=== PATIENT | female | born 1970 | race Caucasian/White ===

== ENCOUNTER 2019-01-20 05:21 | Day surgery (SDC) | payer BC ==
[~2019-01-20] VITALS: Ht 152.4 cm; Wt 61.2 kg
--- NOTE | ~2019-01-20 | O ---
[facility] [place] [address] OPERATIVE REPORT Name: ANGIE ALCANTARA Room #: DEP [facility]..#: [id number] Admission: 01/20/19 ������������������ Attend Phys: Ryan Madrigal MD Discharge: 01/20/19 ������������������ Date of : 72 Report #: [id number] THIS REPORT FOR: //name// CC: MANISH physician/PCP Ryan Madrigal DATE OF SERVICE: 01/20/2019 PREOPERATIVE DIAGNOSES: Chronic pelvic pain, severe dysmenorrhea and dyspareunia. POSTOPERATIVE DIAGNOSES: Possible endometriosis, chronic pelvic pain, severe dysmenorrhea and dyspareunia. SURGEON: Ryan Madrigal M.D. BEAM SAW OPERATOR: None. ANESTHESIA: General. ESTIMATED BLOOD LOSS: 5 mL. PROCEDURE: Laparoscopic excision of pelvic cul-de-sac endometriosis; laparoscopic ablation of endometriosis of the uterine serosa. COMPLICATIONS: None. SPECIMEN: 1. Mucoid peritoneal cysts x 2. 2. Posterior cul-de-sac peritoneal window. FINDINGS: Exam under anesthesia revealed an anteflexed uterus of normal size with no adnexal masses. Uterus sounded to 7 cm depth and was anteflexed and was slightly stenotic at the level of the internal os necessitating the use of a cervical dilator in addition to a uterine sound. LAPAROSCOPIC FINDINGS: The uterine serosa appeared somewhat inflamed, particularly at the bilateral uterine cornua, where it exhibited a wider space with hypervascularity, consistent with possible atypical endometriosis. There was a peritoneal window of the posterior cul-de-sac at the 11 o'clock position, which was excised. The left posterior broad ligament appeared mildly inflamed. There were no typical endometriosis lesions found in the pelvis, otherwise. Both fallopian tubes were surgically absent as was the left ovary. The right ovary appeared nodular, but otherwise normal in appearance. Found floating freely in the posterior cul-de-sac were two separate distinct conglomerates of mucoid-filled cysts, measuring approximately 5-8 mm in diameter. [facility] [address] [place] [address] OPERATIVE REPORT Name: ANGIE ALCANTARA Room #: DEP [facility].#: [id number] Admission: 01/20/19 ������������������ Attend Phys: Ryan Madrigal MD Discharge: 01/20/19 ������������������ Date of : 72 Report #: [id number] DESCRIPTION OF PROCEDURE: The patient was seen in the preoperative holding area, where consent was obtained for surgery and followup in the office was discussed. She was then taken to the operating room, administered general anesthesia and prepped and draped in a sterile fashion in the dorsal lithotomy position, modified. Pelvic exam under anesthesia was carried out. Speculum was placed in the vagina. Cervix was grasped using a single tooth tenaculum. A uterine sound was unable to get past the level of the internal os. A small Hanks dilator of the cervix was then used to delineate the path of the endometrial canal after bypassing the internal os stenosis. Sounding was to a depth of 7 cm. A Hulka sound tenaculum was then inserted inside the uterus for manipulation and the single tooth tenaculum removed. The speculum was removed and a Paris catheter was inserted into the bladder. Attention was then turned to the abdomen, where an infraumbilical skin incision was made using a scalpel in a vertical direction in the inferior portion of the umbilicus, after first infiltrating the subcutaneous and subcuticular layers with 0.5% Marcaine. With upward traction on the abdomen, a laparoscopic Optiview trocar was inserted under Optiview vision without difficulty. The trocar was removed. The CO2 gas insufflated to a pressure of 15 mmHg. The laparoscope was inserted and there was no evidence of any bowel injury. There was seemed to be some omentum adherent to the area of the umbilicus, just superior to the level of insertion. Trendelenburg position was then established. The inferior epigastric blood vessels could not be visualized laparoscopically. A 5-mm laparoscopic trocar and sleeve were inserted under direct laparoscopic vision, one in each lower quadrants, while staying 2 fingerbreadths above and medial to the anterior iliac spines and staying in the lateral one-third of the abdomen respectively. The mucoid peritoneal cysts were removed laparoscopically and sent for pathology. Monopolar cautery was then used to ablate the atypical endometriosis like lesions at the bilateral cornu of the uterus. The peritoneal window was found in the posterior cul-de-sac at the 11 o'clock position and was excised using a scalpel and monopolar cautery for hemostasis. This window was sent for pathology. The 5-mm trocars were removed from the lower quadrants and found to be hemostatic under laparoscopic vision. CO2 gas was then expressed through the umbilical trocar sleeve, which was then removed. The skin incisions were closed using simple sutures of 4-0 Vicryl. The Hulka sound tenaculum was removed and pressure used with sponge on a stick on the cervix for hemostasis, which was observed. All instrument, needle and pad counts were correct. The patient was brought out of general anesthesia and taken to the recovery room with IV infusing well. She will be discharged home with instructions to take ibuprofen 800 mg every 8 hours for pain and to augment that with [place] 5/325 one tablet every 4 hours as needed for pain, dispensed 20 with no refills. She was to follow up as an outpatient in the office in 8 days. She was to contact Dr. Madrigal should she have any problems, including pain, redness or pus around the incisions; [facility] [address] [place] [address] OPERATIVE REPORT Name: SUDEEP ALCANTARADelicia CORDERO Room #: DEP [facility] M.R.#: [id number] Admission: 01/20/19 ������������������ Attend Phys: Ryan Madrigal MD Discharge: 01/20/19 ������������������ Date of : 72 Report #: [id number] abdominal bloating; nausea; vomiting; fever or any other issues that might seem suspicious or out of the ordinary. ��������������������������������������������� ���������������������������������������� By: ��������������������������������������������� [id number] [id number] Ryan Madrigal MD /nt
[~2019-01-20 05:21] MED LIST: CELEXA10 MG PO; IBUPROFEN 200200 M1 PO; LORATIDINE 10 M10 M1 PO; PROBIOTIC1 EAC1 PO; TYLENOL325 MG PO
[2019-01-20 08:00] VITALS: BP 116/62
[2019-01-20] MEDS ORDERED: IBUPROFEN 200200 M1 PO (12:35)
[2019-01-20] MEDS ORDERED: NORCO 5-325 TA1 EAC1 PO (12:35)
[2019-01-20 13:06] VITALS: BP 116/62
--- NOTE | 2019-01-21 16:06 | PATH ---
[facility] [address] [place] [address] PATHOLOGY RPT PROCEDURE Name: KARI ALCANTARA Room #: DEP [facility] M.R.#: [id number] ������������������ Admission: 01/20/19 ������������������ Date of : 72 Discharge: 01/20/19 Report #: [id number] Path Case #: [id number] [facility] Accession Number: [id number] . 01 Material submitted: . PART A: peritoneum - PERITONEAL MUCOID CYST PART B: peritoneum - POSTERIOR CUL-DE-SAC PERITONEUM. Modifiers: posterior . 01 Clinical history: . Chronic pain . 02 Diagnosis: A. Peritoneal mucoid cyst, excision: - Cyst lined by flat cuboidal epithelium, compatible with a mesothelial cyst. - Negative for atypia or malignancy. . B. Peritoneum, posterior cul-de-sac biopsy: - Mild chronic inflammation and reactive changes. (IUV:lola; 01/21/2019) MBR/01/21/2019 . 02 Electronically signed: . Antionette Gambino MD, Pathologist NPI- [id number] . 01 Gross description: . A. The specimen is received in formalin, labeled "Kari Alcantara, peritoneal mucoid cyst", are two thin wall dorsey-white cysts, filled with clear fluid measuring 6.0 x 2.2 cm and 5.7 x 2.0 cm. Study Abroad Advisor tissue is submitted in A1. . B. The specimen is received in formalin, labeled "Kari Alcantara, posterior cul-de-sac peritoneum", is an irregular fragment of paz soft tissue measuring 0.5 x 0.3 cm, entirely submitted in B1. (SWS; 01/20/2019) / . Pathologist provided ICD-10: K66.8, K65.9 . 02 CPT . 246247, 095262 Specimen Comment: A courtesy copy of this report has been sent to Specimen Comment: [phone]. Specimen Comment: Report sent to Performed at: [address] [address] PATHOLOGY RPT PROCEDURE Name: KARI ALCANTARA CONSUELO Room #: DEP [facility] Suraj#: [id number] ������������������ Admission: 01/20/19 ������������������ Date of : 72 Discharge: 01/20/19 Report #: [id number] Path Case #: [id number] [facility] Reynold Silva [address] [facility] [facility] [address], [place], [place] [id number] MD Wilfred Mcdonald MD Phone: [phone] Performed at: [address] [id number] MD Antionette Gambino MD Phone: [phone]
== END 2019-01-20 13:35 | disposition home or self-care (01) ==
LOC: OR 05:21 → TBA 05:21 → OR 09:57
DX: K66.8 Other specified disorders of peritoneum (principal); K65.8 Other peritonitis; N94.6 Dysmenorrhea, unspecified; N94.10 Unspecified dyspareunia; G89.29 Other chronic pain; R10.2 Pelvic and perineal pain; K21.9 Gastro-esophageal reflux disease without esophagitis; F32.9 Major depressive disorder, single episode, unspecified; F41.9 Anxiety disorder, unspecified; Z87.442 Personal history of urinary calculi; Z90.49 Acquired absence of other specified parts of digestive tract; Z98.890 Other specified postprocedural states; Z79.899 Other long term (current) drug therapy
CPT/HCPCS: 50010; 50101; 50249; 50386; 50400; 50455; 50555; 51489; 52265; 53307; 53310; 56462; 56528; 56970; 62110; 62900; 70005